=== PATIENT | female | born 1990 | race Caucasian/White ===

== ENCOUNTER 2017-02-14 15:37 | Emergency (ER) | payer MEDICAID ==
[2017-02-14 15:37] VITALS: BMI 45.1
[2017-02-14 15:58] VITALS: RESP 18
--- NOTE | 2017-02-14 16:34 | C.PDOC ---
History Of Present Illness Patient is a 26 year old female who presents to the ER with a complaint of right chest pain. Patient reports having a termination of done last week. Denies SOB, nausea or vomiting. Time Seen by Provider: 02/14/17 15:59 Chief Complaint (Nursing): Chest Pain History Per: Patient History/Exam Limitations: no limitations Onset/Duration Of Symptoms: Hrs Current Symptoms Are (Timing): Still Present Associated Symptoms: denies: Nausea, Dyspnea, Other (Vomiting) Modifying Factors: None Exacerbating Factors: None Alleviating Factors: None Recent travel outside of the [place]: No Past Medical History Reviewed: Historical Data, Nursing Documentation, Vital Signs Vital Signs: Last Vital Signs Temp 98.6 F 02/14/17 18:25 Pulse 71 02/14/17 18:25 Resp 18 02/14/17 18:25 BP 122/81 02/14/17 18:25 Pulse Ox 99 02/14/17 18:25 - Medical History PMH: No Chronic Diseases Surgical History: No Surg Hx Family History: States: Unknown Family Hx - Social History Hx Tobacco Use: No Hx Alcohol Use: No Hx Substance Use: No - Immunization History Hx Tetanus Toxoid Vaccination: No Hx Influenza Vaccination: No Hx Pneumococcal Vaccination: No Review Of Systems Except As Marked, All Systems Reviewed And Found Negative. Constitutional: Negative for: Fever, Chills Cardiovascular: Positive for: Chest Pain Respiratory: Negative for: Shortness of Breath Gastrointestinal: Negative for: Nausea, Vomiting Physical Exam - Physical Exam Appears: Non-toxic Skin: Normal Color, Warm, Dry Head: Atraumatic, Normacephalic Oral Mucosa: Moist Chest: Symmetrical, Tenderness (Right sided, reproducible) Cardiovascular: Rhythm Regular, No Murmur Respiratory: Normal Breath Sounds, No Rales, No Rhonchi, No Wheezing Gastrointestinal/Abdominal: Soft, No Tenderness Neurological/Psych: Oriented x3, Normal Speech, Normal Cognition Gait: Steady ED Course And Treatment - Laboratory Results Result Diagrams: 02/14/17 16:43 02/14/17 16:43 Lab Interpretation: Normal Urine POC: Positive ECG: Interpreted By Me ECG Rhythm: Sinus Rhythm ECG Interpretation: Normal Rate From EC O2 Sat by Pulse Oximetry: 100 (Room air) Pulse Ox Interpretation: Normal - Radiology CXR: Interpreted by Me CXR Interpretation: Yes: No Acute Disease Progress Note: EKG, blood work, CXR and urinalysis ordered. Toradol administered. On re-evaluation lungs clear, in no distress Reassessment Condition: Improved Disposition Counseled Patient/Family Regarding: Studies Performed, Diagnosis, Need For Followup, Rx Given - Disposition Referrals: [facility] [Outside] [facility] [employer] [Outside] Disposition: HOME/ ROUTINE Disposition Time: 18:00 Condition: IMPROVED Additional Instructions: Follow up with PMD for further evaluation Prescriptions: Naproxen [Naprosyn] 1 tab PO BID PRN #25 tab PRN Reason: Pain Instructions: Chest Wall Pain (ED) - POA Present On Arrival: None - Clinical Impression Clinical Impression: Chest wall pain, Muscle strain - Scribe Statement The provider has reviewed the documentation as recorded by the Scribrj Joseph All medical record entries made by the Santaibrj were at my direction and personally dictated by me. I have reviewed the chart and agree that the record accurately reflects my personal performance of the history, physical exam, medical decision making, and the department course for this patient. I have also personally directed, reviewed, and agree with the discharge instructions and disposition.
[2017-02-14 16:46] LABS: BASO # 0.1 K/uL (0.0-0.2); BASO % 0.6 % (0.0-2.0); EOS # 0.3 K/uL (0.0-0.7); EOS % 3.1 % (0.0-4.0); HEMATOCRIT 41.2 % (34.0-47.0); LYMPH % 28.7 % (20.0-40.0); MEAN CELL VOLUME 77.3 fL (81.0-99.0); MEAN CORPUSCULAR HEMOGLOBIN 24.8 pg (27.0-31.0); MEAN CORPUSCULAR HGB CONC 32.1 g/dL (33.0-37.0); MEAN PLATELET VOLUME 8.7 fL (7.2-11.7); MONO # 0.7 K/uL (0.0-0.8); MONO % 6.8 % (0.0-10.0); RED CELL DISTRIBUTION WIDTH 13.9 % (11.5-14.5); WHITE BLOOD COUNT 10.4 K/uL (4.8-10.8)
[2017-02-14 17:01] LABS: RBC URINE 3 /hpf (0-3); URINE BILIRUBIN NEGATIVE (NEGATIVE); URINE BLOOD 3+ (NEGATIVE); URINE COLOR Yellow (YELLOW); URINE GLUCOSE (UA) NORMAL (Normal); URINE HYALINE CAST 0-2 /lpf (0-2); URINE KETONE NEGATIVE (NEGATIVE); URINE LEUKOCYTE ESTERASE NEG Leu/uL (Negative); URINE PROTEIN NEGATIVE (NEGATIVE); URINE UROBILINOGEN NORMAL mg/dL (0.2-1.0); WBC URINE 1 /hpf (0-5)
--- NOTE | 2017-02-14 17:26 | RAD ---
HISTORY: SOB COMPARISON: No prior. TECHNIQUE: Chest PA and lateral FINDINGS: LUNGS: No active pulmonary disease. PLEURA: No significant pleural effusion identified. No pneumothorax apparent. CARDIOVASCULAR: Normal. OSSEOUS STRUCTURES: No significant abnormalities. VISUALIZED UPPER ABDOMEN: Normal. OTHER FINDINGS: None. IMPRESSION: No active disease.
[2017-02-14 17:38] LABS: CHLORIDE 104 mmol/L (98-107)
[2017-02-14 17:39] LABS: POTASSIUM 3.6 mmol/L (3.6-5.2); SODIUM 139 mmol/L (132-148)
[2017-02-14 17:41] LABS: GFR AFRICAN-AMERICAN > 60
[2017-02-14 17:42] LABS: ALB/GLOB RATIO 1.3 (1.0-2.1); ALKALINE PHOSPHATASE 42 U/L (38-126); ALT/SGPT 26 U/L (9-52); AST/SGOT 21 U/L (14-36); BILIRUBIN,TOTAL 0.5 mg/dL (0.2-1.3); BLOOD UREA NITROGEN 10 mg/dL (7-17); CALCIUM 9.7 mg/dl (8.6-10.4); CARBON DIOXIDE 25 mmol/L (22-30); GLUCOSE,RANDOM 88 mg/dL (65-105); TOTAL PROTEIN 6.9 g/dL (6.3-8.3)
[2017-02-14 18:32] VITALS: BP 122/81; PULSE 71; TEMP 98.6
[2017-02-14 18:35] VITALS: O2SAT 100
== END 2017-02-14 18:31 | disposition home or self-care (01) ==
LOC: C.ER 15:37
DX: S29.011A Strain of muscle and tendon of front wall of thorax, initial encounter (principal); X58.XXXA Exposure to other specified factors, initial encounter; Y93.89 Activity, other specified; Y92.89 Other specified places as the place of occurrence of the external cause; R07.89 Other chest pain
CPT/HCPCS: 71020; 80053; 81001; 85025; 96374; 99285; J1885

== ENCOUNTER 2017-08-06 10:13 | Emergency (ER) | payer MEDICAID ==
[2017-08-06 10:13] VITALS: BMI 45.1
[2017-08-06] MEDS ORDERED: Oxycodone/Acetaminophen 5/325 mg Tab PO STA ×2 (10:43→11:43)
--- NOTE | 2017-08-06 10:49 | C.PDOC ---
History Of Present Illness 27yo female, presents to ED for evaluation after she slipped on an icy surface and landed on her buttock prior to arrival. Patient states she currently has pain to her buttock area; she denies any loss of consciousness, bowel or bladder dysfunction, saddle anesthesia. No other complaints. Time Seen by Provider: 08/06/17 10:39 Chief Complaint (Nursing): Back Pain History Per: Patient History/Exam Limitations: no limitations Onset/Duration Of Symptoms: Mins Current Symptoms Are (Timing): Still Present Quality Of Discomfort: "Pain" Previous Symptoms: None Associated Symptoms: None Past Medical History Reviewed: Historical Data, Nursing Documentation, Vital Signs Vital Signs: Last Vital Signs Temp 97.7 F 08/06/17 12:25 Pulse 88 08/06/17 12:25 Resp 18 08/06/17 12:25 BP 142/106 H 08/06/17 12:25 Pulse Ox 100 08/06/17 12:25 - Medical History PMH: No Chronic Diseases Surgical History: No Surg Hx Family History: States: Unknown Family Hx - Social History Hx Tobacco Use: No Hx Alcohol Use: No Hx Substance Use: No - Immunization History Hx Tetanus Toxoid Vaccination: No Hx Influenza Vaccination: No Hx Pneumococcal Vaccination: No Review Of Systems Musculoskeletal: Positive for: Back Pain (lower back, buttock area) Neurological: Negative for: Other (loss of consciousness) Physical Exam - Physical Exam Appears: Non-toxic Skin: Normal Color Neck: Supple Back: No Vertebral Tenderness, No Paraspinal Tenderness, Other (tenderness around sacrum and coccyx area. ) Pulses: Left Radial: Normal, Right Radial: Normal, Left Dorsalis Pedis: Normal, Right Dorsalis Pedis: Normal Neurological/Psych: Normal Motor Gait: Steady ED Course And Treatment O2 Sat by Pulse Oximetry: 95 - Other Rad XR Lumbar Spine 3 Views X-Ray: Interpreted by Me, Viewed By Me Interpretation: No acute fracture. Normal bony alignment. XR Coccyx and Sacrum X-Ray: Interpreted by Me, Viewed By Me Interpretation: No fracture or dislocations. Medical Decision Making Medical Decision Making: Impression: Back injury Plan: -- XR Lumbar spine -- XR Sacrum and -- Naprosyn 500 mg PO -- Tylenol/codeine 300 mg PO Time: 1223 Patient resting comfortably and reports improvement in pain. Stable for discharge home. Disposition Counseled Patient/Family Regarding: Studies Performed, Diagnosis, Need For Followup, Rx Given - Disposition Referrals: [facility] [Outside] Disposition: HOME/ ROUTINE Disposition Time: 12:24 Condition: STABLE Additional Instructions: follow up with clinic in 2 days call to make an appointment take pain medications as needed return to hospital if symptoms worsens or progress Prescriptions: Acetaminophen/Codeine [Tylenol/Codeine 300 MG/30 MG] 1 tab PO Q6H PRN #12 tab PRN Reason: Pain, Severe (8-10) Cyclobenzaprine [Cyclobenzaprine HCl] 10 mg PO TID PRN #12 tab PRN Reason: Muscle Spasm Naproxen [Naprosyn] 500 mg PO BID PRN #16 tab PRN Reason: Pain, Moderate (4-7) Instructions: Back Pain (ED) Forms: [facility] (Hungarian), General Discharge Instructions - Clinical Impression Clinical Impression: Contusion of back - Scribe Statement The provider has reviewed the documentation as recorded by the Komal Raygoza Provider Attestation: All medical record entries made by the Komal were at my direction and personally dictated by me. I have reviewed the chart and agree that the record accurately reflects my personal performance of the history, physical exam, medical decision making, and the department course for this patient. I have also personally directed, reviewed, and agree with the discharge instructions and disposition.
[2017-08-06] MEDS ORDERED: Oxycodone/Acetaminophen 5/325 mg Tab ONE ×2 (11:20→11:52)
[2017-08-06 12:29] VITALS: BP 142/106; PULSE 88; RESP 18; TEMP 97.7
[2017-08-06 12:35] VITALS: O2SAT 95
--- NOTE | 2017-08-06 16:30 | RAD ---
PROCEDURE: Radiographs of the Sacrum and Coccyx HISTORY: fall COMPARISON: None available. TECHNIQUE: Frontal and lateral views of the sacrum and coccyx FINDINGS: BONES: Sacrum and coccyx unremarkable. No fracture or focal lesion. The lateral depiction of the sacrococcygeal junction is within normal limits There is incomplete closure of the S1 posterior elements suggested - developmental variant SACROILIAC JOINTS: Unremarkable. OTHER FINDINGS: Mild pubic symphyseal joint arthropathic changes IMPRESSION: No suspect fracture.
--- NOTE | 2017-08-06 16:31 | RAD ---
PROCEDURE: Radiographs of the Lumbar Spine. HISTORY: fall COMPARISON: No prior. FINDINGS: BONES: Normal alignment. No listhesis. No fracture. Developmental variant -incomplete S1 posterior element closure DISC SPACES: Unremarkable. OTHER FINDINGS: None. IMPRESSION: No fracture or subluxation
== END 2017-08-06 12:41 | disposition home or self-care (01) ==
LOC: C.ER 10:13
DX: S30.0XXA Contusion of lower back and pelvis, initial encounter (principal); W00.0XXA Fall on same level due to ice and snow, initial encounter

== ENCOUNTER 2017-09-07 12:46 | Emergency (ER) | payer MEDICAID ==
[2017-09-07 12:46] VITALS: BMI 45.1
[2017-09-07 14:13] LABS: HCG,QUALITATIVE URINE POSITIVE (NEGATIVE)
[2017-09-07 14:27] LABS: SQUAMOUS EPITHIAL 1 /hpf (0-5); URINE BILIRUBIN NEGATIVE (NEGATIVE); URINE BLOOD 3+ (NEGATIVE); URINE CLARITY Clear (Clear); URINE COLOR Yellow (YELLOW); URINE GLUCOSE (UA) NORMAL (Normal); URINE LEUKOCYTE ESTERASE NEG Leu/uL (Negative); URINE NITRATE NEGATIVE (NEGATIVE); URINE PROTEIN 1+ mg/dL (NEGATIVE); URINE UROBILINOGEN NORMAL mg/dL (0.2-1.0)
[2017-09-07 14:54] LABS: BASO # 0.1 K/uL (0.0-0.2); BASO % 0.9 % (0.0-2.0); EOS # 0.1 K/uL (0.0-0.7); EOS % 1.3 % (0.0-4.0); HEMOGLOBIN 12.5 g/dL (11.0-16.0); LYMPH # 2.1 K/uL (1.0-4.3); LYMPH % 21.4 % (20.0-40.0); MEAN CELL VOLUME 76.4 fL (81.0-99.0); MEAN CORPUSCULAR HEMOGLOBIN 25.9 pg (27.0-31.0); MEAN CORPUSCULAR HGB CONC 33.9 g/dL (33.0-37.0); MONO # 0.6 K/uL (0.0-0.8); MONO % 5.6 % (0.0-10.0); NEUT # 7.1 K/uL (1.8-7.0); NEUT % 70.8 % (50.0-75.0); RBC 4.81 Mil/uL (3.80-5.20); RED CELL DISTRIBUTION WIDTH 14.3 % (11.5-14.5)
[2017-09-07 15:11] VITALS: RESP 18
[2017-09-07 15:22] LABS: ALB/GLOB RATIO 1.2 (1.0-2.1); ALBUMIN 3.7 g/dL (3.5-5.0); ALT/SGPT 31 U/L (9-52); AST/SGOT 37 U/L (14-36); BLOOD UREA NITROGEN 7 mg/dL (7-17); CALCIUM 8.5 mg/dl (8.6-10.4); GFR AFRICAN-AMERICAN > 60; GFR NON-AFRICAN AMERICAN > 60
--- NOTE | 2017-09-07 16:48 | C.PDOC ---
History Of Present Illness Pt c/o vaginal bleeding. Time Seen by Provider: 09/07/17 13:38 Chief Complaint (Nursing): Female Genitourinary History Per: Patient Onset/Duration Of Symptoms: Hrs (today) Current Symptoms Are (Timing): Still Present Severity: Moderate Location Of Pain/Discomfort: Suprapubic Quality Of Discomfort: Cramping Exacerbating Factors: None Alleviating Factors: None Additional History Per: Prior Records Abnormal Vaginal Bleeding: Yes Last Menstral Period: 08/03/2017 Past Medical History Reviewed: Historical Data, Nursing Documentation, Vital Signs Vital Signs: Last Vital Signs Temp 98.1 F 09/07/17 15:10 Pulse 79 09/07/17 15:10 Resp 18 09/07/17 15:10 BP 107/73 09/07/17 15:10 Pulse Ox 100 09/07/17 16:48 - Medical History PMH: No Chronic Diseases Family History: States: Unknown Family Hx - Social History Hx Tobacco Use: No Hx Alcohol Use: No Hx Substance Use: No - Immunization History Hx Tetanus Toxoid Vaccination: No Hx Influenza Vaccination: No Hx Pneumococcal Vaccination: No Review Of Systems Except As Marked, All Systems Reviewed And Found Negative. Constitutional: Negative for: Fever, Weakness Cardiovascular: Negative for: Chest Pain Respiratory: Negative for: Shortness of Breath Gastrointestinal: Negative for: Vomiting Genitourinary: Positive for: Vaginal Bleeding, Pelvic Pain Musculoskeletal: Negative for: Neck Pain Skin: Negative for: Rash Neurological: Negative for: Weakness, Numbness Physical Exam - Physical Exam Appears: Non-toxic, No Acute Distress Skin: Normal Color, Warm, Dry, No Rash Head: Atraumatic, Normacephalic Eye(s): bilateral: Normal Inspection, PERRL, EOMI Neck: Normal ROM, Supple Cardiovascular: Rhythm Regular Respiratory: Normal Breath Sounds, No Accessory Muscle Use Gastrointestinal/Abdominal: Soft, Tenderness (mild suprapubic), No Guarding, No Rebound Extremity: Normal ROM Neurological/Psych: Oriented x3, Normal Motor, Normal Sensation ED Course And Treatment - Laboratory Results Result Diagrams: 09/07/17 14:46 09/07/17 14:46 Urine POC: Positive O2 Sat by Pulse Oximetry: 100 Pulse Ox Interpretation: Normal - CT Scan/US Pelvic US Other Rad Studies (CT/US): Read By Radiologist, Radiology Report Reviewed CT/US Interpretation: Impression: Limited study. No evidence of intrauterine gestational sac. Right adnexal 2.9 x 2.8 x 2.7 cm heterogeneous indeterminate mass. This lesion does not demonstrate "Ring of fire vascularity" typical of an ectopic however ectopic remains of high concern, particularly in this patient without intrauterine gestational sac evident. Correlate clinically. If indeed the patient is based on serum beta HCG values, the lack of intrauterine gestational sac represents either: Very early IUP; embryonic demise; ectopic gestation. Follow-up with serial quantitative serum beta HCG measurements and post OBGYN follow-up as clinically indicated. Small fluid noted adjacent to the right ovary. Heterogeneous hypoechoic region within the endometrium measuring approximately 1.5 x 0.8 x 2.3 cm, possibly blood products. Disposition Discussed With : Lauren Cabral (Gas Engine Mechanic) Comment: She evaluated and examined pt in the ED. She states pt should be discharged home and return or f/up with her Digital Forensics Examiner in 2 days for repeat beta hcg. Doctor Will See Patient In The: ED Counseled Patient/Family Regarding: Studies Performed, Diagnosis, Need For Followup - Disposition Disposition: HOME/ ROUTINE Disposition Time: 17:59 Condition: STABLE Additional Instructions: Follow up with your Manager Education or return to the ER in 2 days for repeat hormone level. Return to the ER immediately if you develop severe pain , heavy bleeding, dizziness, worsening of symptoms or if you have any other concerns. Forms: [facility] (Faroese), General Discharge Instructions - Clinical Impression Clinical Impression: Vaginal bleeding in
--- NOTE | 2017-09-07 16:48 | US ---
Indication: Vaginal bleeding, rule out ectopic Comparison: None available Technique: Real-time transabdominal pelvic ultrasound was performed. In addition a transvaginal pelvic ultrasound was necessary to better depict pelvic anatomy. Findings: Examination markedly limited due to habitus. Uterus measures approximately 12.2 x 5.7 x 7.6 cm. Anteverted. Cervix length measures approximately 3.3 cm. Endometrial thickness measures approximately 2 cm in diameter. Heterogeneous hypoechoic region within the endometrium measuring approximately 1.5 x 0.8 x 2.3 cm, possibly blood products. No intrauterine gestational sac is identified. The right ovary measures approximately 3.2 x 2.6 x 3.2 cm. Blood flow is demonstrated to the right ovary. Inferior to the right ovary is a 2.9 x 2.8 x 2.7 cm heterogeneous indeterminate mass. The left ovary measures approximately 2.9 x 2.4 x 2.9 cm and was seen only in transabdominal portion of the examination. Blood flow is demonstrated the left ovary. Small fluid noted adjacent to the right ovary. Impression: Limited study. No evidence of intrauterine gestational sac. Right adnexal 2.9 x 2.8 x 2.7 cm heterogeneous indeterminate mass. This lesion does not demonstrate "Ring of fire vascularity" typical of an ectopic however ectopic remains of high concern, particularly in this patient without intrauterine gestational sac evident. Correlate clinically. If indeed the patient is based on serum beta HCG values, the lack of intrauterine gestational sac represents either: Very early IUP; embryonic demise; ectopic gestation. Follow-up with serial quantitative serum beta HCG measurements and post OBGYN follow-up as clinically indicated. Small fluid noted adjacent to the right ovary. Heterogeneous hypoechoic region within the endometrium measuring approximately 1.5 x 0.8 x 2.3 cm, possibly blood products. Findings discussed with Dr. Marin on 09/07/17 at 4:44 p.m..
[2017-09-07] MEDS ORDERED: Sodium Chloride 0.9% 1,000 ML IV STA (17:01)
--- NOTE | 2017-09-07 18:11 | CP.PCM.CON ---
<Hunter Barnett E - Last Filed: 09/07/17 18:43> History of Present Illness - History of Present Illness History of Present Illness: Gynecology Consult CC: Lower abdominal cramping and vaginal bleeding HPI: Patient is a 27 year old female with LMP of 08/03/17 who presents to the ED with complaints of sharp cramping abdominal pain and vaginal bleeding/ spotting that started this morning. Gynecology consult was placed in order to evaluate and rule out ectopic . During the encounter, patient reports that she just found out that she was 2 days ago via a home test. Patient has not had a visit. Patient reports that she is unsure if she wants to keep her or not. Patient denies fever, chills, nausea , vomiting, chest pain, current abdominal pain/ cramping and vaginal bleeding/ spotting. 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 absent: Pelvic Pain - Endocrine Endocrine: absent: Fatigue Past Patient History - Infectious Disease Hx of Infectious Diseases: None - Past Social History Smoking Status: Never Smoked - PSYCHIATRIC Hx Substance Use: No - SURGICAL HISTORY Hx Section: Yes Other/Comment: termination 02/07/2017 - ANESTHESIA Hx Anesthesia: Yes Hx Anesthesia Reactions: No Meds Allergies/Adverse Reactions: Allergies Allergy/AdvReac Type Severity Reaction Status Date / Time No Known Allergies Allergy Verified 08/06/17 10:17 Physical Exam - Head Exam Head Exam: ATRAUMATIC, NORMOCEPHALIC - Eye Exam Eye Exam: EOMI - GI/Abdominal Exam GI & Abdominal Exam: Soft. absent: Tenderness - Exam External exam: NORMAL EXTERNAL EXAM. absent: Lacerations, Lesions Speculum exam: Vaginal Bleeding (Blood in the vaginal vault ) Additional comments: SVE: Cervix is closed and posterior - Extremities Exam Extremities exam: Positive for: normal inspection - Neurological Exam Neurological exam: Alert, Oriented x3 - Psychiatric Exam Psychiatric exam: Normal Affect - Skin Skin Exam: Normal Color Results - Vital Signs Recent Vital Signs: Last Vital Signs Temp 98.1 F 09/07/17 15:10 Pulse 79 09/07/17 15:10 Resp 18 09/07/17 15:10 BP 107/73 09/07/17 15:10 Pulse Ox 100 09/07/17 18:02 - Labs Result Diagrams: 09/07/17 14:46 09/07/17 14:46 Labs: Laboratory Results - last 24 hr 09/07/17 09/07/17 09/07/17 14:05 14:46 14:46 WBC 10.0 RBC 4.81 Hgb 12.5 Hct 36.8 MCV 76.4 L MCH 25.9 L MCHC 33.9 RDW 14.3 Plt Count 257 MPV 8.0 Neut % (Auto) 70.8 Lymph % (Auto) 21.4 [place] % (Auto) 5.6 Eos % (Auto) 1.3 Baso % (Auto) 0.9 Neut # 7.1 H Lymph # 2.1 Madison # 0.6 Eos # 0.1 Baso # 0.1 Sodium 135 Potassium 3.5 L Chloride 101 Carbon Dioxide 25 Anion Gap 12 BUN 7 Creatinine 0.5 L Est GFR ( Amer) > 60 Est GFR (Non-Af Amer) > 60 Random Glucose 86 Calcium 8.5 L Total Bilirubin 0.5 AST 37 H ALT 31 Alkaline Phosphatase 43 Total Protein 6.8 Albumin 3.7 Globulin 3.0 Albumin/Globulin Ratio 1.2 Beta HCG, Quant 5655.90 Urine Color Yellow Urine Clarity Clear Urine pH 8.0 Ur Specific [place] 1.014 Urine Protein 1+ H Urine Glucose (UA) Normal Urine Ketones Negative Urine Blood 3+ H Urine Nitrate Negative Urine Bilirubin Negative Urine Urobilinogen Normal Ur Leukocyte Esterase Neg Urine WBC (Auto) 1 Urine RBC (Auto) 663 H Ur Squamous Epith Cells 1 Urine HCG, Qual Positive Blood Type Antibody Screen 09/07/17 14:46 WBC RBC Hgb Hct MCV MCH MCHC RDW Plt Count MPV Neut % (Auto) Lymph % (Auto) Madison % (Auto) Eos % (Auto) Baso % (Auto) Neut # Lymph # [place] # Eos # Baso # Sodium Potassium Chloride Carbon Dioxide Anion Gap BUN Creatinine Est GFR ( Amer) Est GFR (Non-Af Amer) Random Glucose Calcium Total Bilirubin AST ALT Alkaline Phosphatase Total Protein Albumin Globulin Albumin/Globulin Ratio Beta HCG, Quant Urine Color Urine Clarity Urine pH Ur Specific [place] Urine Protein Urine Glucose (UA) Urine Ketones Urine Blood Urine Nitrate Urine Bilirubin Urine Urobilinogen Ur Leukocyte Esterase Urine WBC (Auto) Urine RBC (Auto) Ur Squamous Epith Cells Urine HCG, Qual Blood Type O POSITIVE Antibody Screen Negative Assessment & Plan (1) Vaginal bleeding in Assessment and Plan: 27 year old female with LMP of 08/03/17 who presents to the ED with complaints of sharp cramping abdominal pain and vaginal bleeding/spotting with US showing: * No evidence of intrauterine gestational sac. Right adnexal 2.9 x 2.8 x 2.7 cm heterogeneous indeterminate mass. This lesion does not demonstrate "Ring of fire vascularity" typical of an ectopic however ectopic remains of high concern, particularly in this patient without intrauterine gestational sac evident. Correlate clinically. If indeed the patient is based on serum beta HCG values, the lack of intrauterine gestational sac represents either: Very early IUP; embryonic demise; ectopic gestation. Plan: 1. Stable 2. Repeat B-hCG in 48 hours 3. Follow up with outpatient INSPECTOR OUTSIDE PRODUCTION provider, Dr. Blood 4. Educated on normal miscarriage process 5. Return to the ED if excessive vaginal bleeding 6. Plans discussed with attending Hunter Barnett DO, PGY-1 Status: Acute <Lauren Cabral - Last Filed: 09/07/17 20:39> Physical Exam - Respiratory Exam Respiratory Exam: NORMAL BREATHING PATTERN - Cardiovascular Exam Cardiovascular Exam: REGULAR RHYTHM, +S1, +S2 - GI/Abdominal Exam GI & Abdominal Exam: Normal Bowel Sounds Additional comments: no guarding, no rebound tenderness, no rgidity - Exam Additional comments: External Genitali; No gross abnorlaites Vagi: Dark red, brwown watery discharg,e no clots Cervix: close,d non tender Ueurs; non tender Adnex; non tende,r no masses b/l Anus/Perienum: grossly nromal - Back Exam Back exam: NORMAL INSPECTION - Neurological Exam Neurological exam: CN II-XII Intact Results - Vital Signs Recent Vital Signs: Last Vital Signs Temp 97.4 F L 09/07/17 18:18 Pulse 80 09/07/17 18:18 Resp 18 09/07/17 18:18 BP 112/62 09/07/17 18:18 Pulse Ox 98 09/07/17 18:18 - Labs Result Diagrams: 09/07/17 14:46 09/07/17 14:46 Labs: Laboratory Results - last 24 hr 09/07/17 09/07/17 09/07/17 14:05 14:46 14:46 WBC 10.0 RBC 4.81 Hgb 12.5 Hct 36.8 MCV 76.4 L MCH 25.9 L MCHC 33.9 RDW 14.3 Plt Count 257 MPV 8.0 Neut % (Auto) 70.8 Lymph % (Auto) 21.4 [place] % (Auto) 5.6 Eos % (Auto) 1.3 Baso % (Auto) 0.9 Neut # 7.1 H Lymph # 2.1 Madison # 0.6 Eos # 0.1 Baso # 0.1 Sodium 135 Potassium 3.5 L Chloride 101 Carbon Dioxide 25 Anion Gap 12 BUN 7 Creatinine 0.5 L Est GFR ( Amer) > 60 Est GFR (Non-Af Amer) > 60 Random Glucose 86 Calcium 8.5 L Total Bilirubin 0.5 AST 37 H ALT 31 Alkaline Phosphatase 43 Total Protein 6.8 Albumin 3.7 Globulin 3.0 Albumin/Globulin Ratio 1.2 Beta HCG, Quant 5655.90 Urine Color Yellow Urine Clarity Clear Urine pH 8.0 Ur Specific [place] 1.014 Urine Protein 1+ H Urine Glucose (UA) Normal Urine Ketones Negative Urine Blood 3+ H Urine Nitrate Negative Urine Bilirubin Negative Urine Urobilinogen Normal Ur Leukocyte Esterase Neg Urine WBC (Auto) 1 Urine RBC (Auto) 663 H Ur Squamous Epith Cells 1 Urine HCG, Qual Positive Blood Type Antibody Screen 09/07/17 14:46 WBC RBC Hgb Hct MCV MCH MCHC RDW Plt Count MPV Neut % (Auto) Lymph % (Auto) [place] % (Auto) Eos % (Auto) Baso % (Auto) Neut # Lymph # Madison # Eos # Baso # Sodium Potassium Chloride Carbon Dioxide Anion Gap BUN Creatinine Est GFR ( Amer) Est GFR (Non-Af Amer) Random Glucose Calcium Total Bilirubin AST ALT Alkaline Phosphatase Total Protein Albumin Globulin Albumin/Globulin Ratio Beta HCG, Quant Urine Color Urine Clarity Urine pH Ur Specific [place] Urine Protein Urine Glucose (UA) Urine Ketones Urine Blood Urine Nitrate Urine Bilirubin Urine Urobilinogen Ur Leukocyte Esterase Urine WBC (Auto) Urine RBC (Auto) Ur Squamous Epith Cells Urine HCG, Qual Blood Type O POSITIVE Antibody Screen Negative - Impressions Impression: Beta: 5000+ US: no IUP , possible blodoclots, ovarin cyst Rh positive Assessment & Plan (1) Vaginal bleeding in Assessment and Plan: agree with above pt seen and examined with resident pt advised higher suscipion of abnorla however cannot rule out ectoipc repeat beta hcg 48 hours bleeding/pain precautions given Status: Acute
[2017-09-07 18:19] VITALS: BP 112/62; PULSE 80; TEMP 97.4; O2SAT 98
== END 2017-09-07 18:18 | disposition home or self-care (01) ==
LOC: C.ER 12:46
DX: O46.90 Antepartum hemorrhage, unspecified, unspecified trimester (principal); Z3A.00 Weeks of gestation of pregnancy not specified

== ENCOUNTER 2017-09-15 09:19 | Emergency (ER) | payer MEDICAID ==
[2017-09-15 09:19] VITALS: BMI 45.1
[2017-09-15 09:32] VITALS: RESP 16; TEMP 97.6
--- NOTE | 2017-09-15 10:47 | C.PDOC ---
History Of Present Illness 27-year-old female, presents to the emergency department with complaints of intermittent vaginal bleeding for the last week, that is associated with intermittent cramping. Patient was seen in ED one week ago and intrauterine was not seen at the time on US. Patient notes she followed up with her OBGYN and had her blood drawn, but she doesn't have results. Patient denies any pain at this time, no fever. Time Seen by Provider: 09/15/17 09:30 Chief Complaint (Nursing): Female Genitourinary History Per: Patient History/Exam Limitations: no limitations Onset/Duration Of Symptoms: Days Current Symptoms Are (Timing): Still Present Severity: Moderate Past Medical History Reviewed: Historical Data, Nursing Documentation, Vital Signs Vital Signs: Last Vital Signs Temp 97.6 F 09/15/17 09:29 Pulse 86 09/15/17 09:29 Resp 16 09/15/17 09:29 BP 127/74 09/15/17 09:29 Pulse Ox 99 09/15/17 10:48 Family History: States: No Known Family Hx - Social History Hx Tobacco Use: No Hx Alcohol Use: No Hx Substance Use: No - Immunization History Hx Tetanus Toxoid Vaccination: No Hx Influenza Vaccination: No Hx Pneumococcal Vaccination: No Review Of Systems Except As Marked, All Systems Reviewed And Found Negative. Constitutional: Negative for: Fever, Chills Cardiovascular: Negative for: Chest Pain Respiratory: Negative for: Shortness of Breath Genitourinary: Positive for: Vaginal Bleeding, Pelvic Pain Musculoskeletal: Negative for: Back Pain Physical Exam - Physical Exam Appears: Non-toxic, No Acute Distress Skin: Warm, Dry, No Rash Eye(s): bilateral: Normal Inspection, PERRL Nose: Normal Lips: Normal Appearing Neck: Normal ROM Chest: Symmetrical Cardiovascular: Rhythm Regular, No Murmur Respiratory: Normal Breath Sounds, No Accessory Muscle Use Gastrointestinal/Abdominal: Soft, No Tenderness, No Distention Extremity: Normal ROM Neurological/Psych: Oriented x3, Other (no focal deficits) ED Course And Treatment O2 Sat by Pulse Oximetry: 99 (on RA) Pulse Ox Interpretation: Normal Medical Decision Making Medical Decision Makin disc w OB Dr Momin, agrees likely spont ab, ectopic unlikely, however agrees w plan for close outpt f/u w OB in 2 days. 1225 disc results w pt and plan for f/u as well as rtr. she v/u and agrees w plan. HISTORY: Bleeding pain eval for ectopic vs spont ab COMPARISON: None available. TECHNIQUE: Transvaginal pelvic ultrasound was performed. FINDINGS: UTERUS: Measures 11.8 x 7.4 x 7.5 cm. Anteverted and normal in size. No fibroid or other mass lesion seen. ENDOMETRIUM: There is a single intrauterine gestational sac with mean sac diameter of 1.12 cm corresponding to 5 weeks and 2 days of gestational age. Yolk sac and pole are not visualized. There is a 2.2 x 0.7 x 1.4 cm posterior subchorionic hemorrhage. CERVIX: No cervical abnormality identified. RIGHT OVARY: Measures 5.9 x 2.3 x 4.8 cm. No solid mass. Normal flow. There is a 3.4 x 2.4 x 2.7 cm corpus luteum cyst. LEFT OVARY: Measures 3.7 x 1.9 x 3.0 cm. No solid mass. Normal flow. FREE FLUID: No significant free fluid noted. OTHER FINDINGS: None. IMPRESSION: 1. Single intrauterine gestational sac with mean gestational diameter of 1.12 cm corresponding to 5 weeks and 2 days of gestational age. Yolk sac and pole are not visualized. 2. 2.2 x 0.7 x 1.4 cm posterior subchorionic hemorrhage. 3. 3.4 cm corpus luteum cyst in the right ovary. Disposition - Disposition Disposition: HOME/ ROUTINE Disposition Time: 13:27 Condition: STABLE Forms: [facility] ([place]) - Clinical Impression Clinical Impression: Vaginal bleeding in - Scribe Statement The provider has reviewed the documentation as recorded by the Scribe (Di Conteh) All medical record entries made by the Scribe were at my direction and personally dictated by me. I have reviewed the chart and agree that the record accurately reflects my personal performance of the history, physical exam, medical decision making, and the department course for this patient. I have also personally directed, reviewed, and agree with the discharge instructions and disposition.
--- NOTE | 2017-09-15 12:51 | US ---
HISTORY: Bleeding pain eval for ectopic vs spont ab COMPARISON: None available. TECHNIQUE: Transvaginal pelvic ultrasound was performed. FINDINGS: UTERUS: Measures 11.8 x 7.4 x 7.5 cm. Anteverted and normal in size. No fibroid or other mass lesion seen. ENDOMETRIUM: There is a single intrauterine gestational sac with mean sac diameter of 1.12 cm corresponding to 5 weeks and 2 days of gestational age. Yolk sac and pole are not visualized. There is a 2.2 x 0.7 x 1.4 cm posterior subchorionic hemorrhage. CERVIX: No cervical abnormality identified. RIGHT OVARY: Measures 5.9 x 2.3 x 4.8 cm. No solid mass. Normal flow. There is a 3.4 x 2.4 x 2.7 cm corpus luteum cyst. LEFT OVARY: Measures 3.7 x 1.9 x 3.0 cm. No solid mass. Normal flow. FREE FLUID: No significant free fluid noted. OTHER FINDINGS: None. IMPRESSION: 1. Single intrauterine gestational sac with mean gestational diameter of 1.12 cm corresponding to 5 weeks and 2 days of gestational age. Yolk sac and pole are not visualized. 2. 2.2 x 0.7 x 1.4 cm posterior subchorionic hemorrhage. 3. 3.4 cm corpus luteum cyst in the right ovary.
[2017-09-15 13:37] VITALS: BP 125/81; PULSE 74; O2SAT 98
== END 2017-09-15 13:37 | disposition home or self-care (01) ==
LOC: C.ER 09:19
DX: O46.91 Antepartum hemorrhage, unspecified, first trimester (principal); Z3A.01 Less than 8 weeks gestation of pregnancy

== ENCOUNTER 2017-10-08 15:29 | Inpatient (IN) | payer MEDICAID ==
[2017-10-08 16:05] VITALS: BMI 39.5
--- NOTE | 2017-10-08 17:09 | C.PDOC ---
History Of Present Illness <Karina Culver - Last Filed: 10/08/17 18:57> <Lorena Mcqueen - Last Filed: 10/08/17 22:16> PERSIST VAG BLEED, CRAMPING X 1 MO. PRIOR ER EVAL FOR SAME, +IUP ON 09/15. PS HAD HEAVY VB ON 09/24, NOW W RESIDUAL BLEEDING. FU W OBGYN, AWARE OF PERSISTENT SX. PS CONCERNED BC TODAY HAD SHARP R PELVIC PAIN, NOW IMPROVED BUT PERSISTENT. NO OTHER ASSOC SX EXAM MILD DIST NONTOXIC ABD SOFT NT ND NO R/G (Palomo,Karina) History Per: Patient History/Exam Limitations: no limitations Onset/Duration Of Symptoms: Days Current Symptoms Are (Timing): Still Present Severity: Moderate <Karina Culver - Last Filed: 10/08/17 18:57> <Lorena Mcqueen - Last Filed: 10/08/17 22:16> Time Seen by Provider: 10/08/17 17:08 Chief Complaint (Nursing): Abdominal Pain Past Medical History Reviewed: Historical Data, Nursing Documentation, Vital Signs - Medical History PMH: No Chronic Diseases Other Surgeries: Hx of surgeries Family History: States: No Known Family Hx - Social History Hx Tobacco Use: No Hx Alcohol Use: No Hx Substance Use: No - Immunization History Hx Tetanus Toxoid Vaccination: No Hx Influenza Vaccination: No Hx Pneumococcal Vaccination: No <Karina Culver - Last Filed: 10/08/17 18:57> Vital Signs: Last Vital Signs Temp 98.8 F 10/08/17 16:05 Pulse 94 H 10/08/17 16:05 Resp 18 10/08/17 16:05 BP 122/79 10/08/17 16:05 Pulse Ox 100 10/08/17 18:58 Review Of Systems Except As Marked, All Systems Reviewed And Found Negative. Genitourinary: Positive for: Vaginal Bleeding Musculoskeletal: Positive for: Other (right pelvic pain) <Karina Culver - Last Filed: 10/08/17 18:57> Physical Exam - Physical Exam Appears: Non-toxic, Other (mild distress) Skin: Normal Color, Warm Head: Atraumatic, Normacephalic Eye(s): bilateral: Normal Inspection Gastrointestinal/Abdominal: Normal Exam, Soft, No Tenderness, No Distention, No Guarding, No Rebound Neurological/Psych: Oriented x3, Normal Speech, Normal Motor, Normal Sensation <Karina Culver - Last Filed: 10/08/17 18:57> ED Course And Treatment - Laboratory Results Result Diagrams: 10/08/17 17:55 10/08/17 17:55 O2 Sat by Pulse Oximetry: 100 (RA) Pulse Ox Interpretation: Normal <Karina Culver - Last Filed: 10/08/17 18:57> - Laboratory Results Result Diagrams: 10/08/17 17:55 10/08/17 17:55 <Lorena Mcqueen - Last Filed: 10/08/17 22:16> Progress - Data Reviewed Data Reviewed: Lab, Diagnostic imaging, Old records <Karina Culver - Last Filed: 10/08/17 18:57> - Time Time: 20:34 - Continuity of Care Discussed patient case with:: Patient, Other (Pt with pelvic US demonstrative of an ill defined R adnexal mass..No true yolk sac or pole is identified.? pseudogestational sac) <Lorena Mcqueen - Last Filed: 10/08/17 22:16> Medical Decision Making <Karina Culver - Last Filed: 10/08/17 18:57> <Lorena Mcqueen - Last Filed: 10/08/17 22:16> Medical Decision Making: Plan: --Labs --UA --US (Karina Culver) Spoke with Dr. Villa who is OBYGYN electronics mechanic at 20:20 and she was going into the OR and states she will come down in an hour and a half. (Lorena Mcqueen) Disposition Counseled Patient/Family Regarding: Studies Performed - Disposition Disposition Time: 19:00 <Karina Culver - Last Filed: 10/08/17 18:57> <Lorena Mcqueen - Last Filed: 10/08/17 22:16> - Disposition Condition: STABLE Forms: [employer] ([place]) - Clinical Impression Clinical Impression: Vaginal bleeding in - Scribe Statement The provider has reviewed the documentation as recorded by the Scribe <Karina Culver - Last Filed: 10/08/17 18:57> <Lorena Mcqueen - Last Filed: 10/08/17 22:16> - Scribe Statement Kerline Hoffmann (Karina Culver) Provider Attestation: All medical record entries made by the Scribe were at my direction and personally dictated by me. I have reviewed the chart and agree that the record accurately reflects my personal performance of the history, physical exam, medical decision making, and the department course for this patient. I have also personally directed, reviewed, and agree with the discharge instructions and disposition. (Karina Culver) Physician Patient Turnover Patient Signed Over To: Lorena Mcqueen Handoff Comments: US SAI, DISPO <Karina Culver - Last Filed: 10/08/17 18:57>
[2017-10-08 18:04] LABS: BASO % 0.4 % (0.0-2.0); EOS # 0.2 K/uL (0.0-0.7); EOS % 2.4 % (0.0-4.0); HEMOGLOBIN 12.2 g/dL (11.0-16.0); LYMPH # 1.9 K/uL (1.0-4.3); LYMPH % 19.6 % (20.0-40.0); MEAN CELL VOLUME 76.7 fL (81.0-99.0); MEAN CORPUSCULAR HEMOGLOBIN 25.9 pg (27.0-31.0); MEAN CORPUSCULAR HGB CONC 33.8 g/dL (33.0-37.0); MONO # 0.6 K/uL (0.0-0.8); MONO % 6.6 % (0.0-10.0); RBC 4.71 Mil/uL (3.80-5.20); RED CELL DISTRIBUTION WIDTH 14.2 % (11.5-14.5); WHITE BLOOD COUNT 9.8 K/uL (4.8-10.8)
[2017-10-08 18:18] LABS: ALB/GLOB RATIO 1.3 (1.0-2.1); ALBUMIN 3.8 g/dL (3.5-5.0); ALT/SGPT 26 U/L (9-52); AST/SGOT 19 U/L (14-36); BLOOD UREA NITROGEN 11 mg/dL (7-17); GFR AFRICAN-AMERICAN > 60; GFR NON-AFRICAN AMERICAN > 60
[2017-10-08 18:31] LABS: SQUAMOUS EPITHIAL 2 /hpf (0-5); URINE BACTERIA OCC (<OCC); URINE BILIRUBIN NEGATIVE (NEGATIVE); URINE BLOOD 3+ (NEGATIVE); URINE CLARITY Hazy (Clear); URINE COLOR Yellow (YELLOW); URINE GLUCOSE (UA) NORMAL (Normal); URINE LEUKOCYTE ESTERASE NEG Leu/uL (Negative); URINE NITRATE NEGATIVE (NEGATIVE); URINE PROTEIN NEGATIVE (NEGATIVE); URINE UROBILINOGEN NORMAL mg/dL (0.2-1.0)
--- NOTE | 2017-10-08 20:11 | US ---
EXAM: US First Trimester, Transabdominal CLINICAL HISTORY: 27 years old, female; Signs and symptoms; Lmp or gestational age (in weeks): 12-11-17; Other: Bleeding; ; Prior surgery; Surgery date: 6+ months; Surgery type: 1 c- section. Orior 09-15-17; Patient HX: See cine please; Additional info: Vag bleed RO ectopic TECHNIQUE: Real-time transabdominal obstetrical ultrasound of the maternal pelvis and a first trimester with image documentation. COMPARISON: US - OB TRANSVAGINAL 2017-09-15 11:48 FINDINGS: Gestation: Two irregular saclike structures with internal echoes within uterus, 3.5 x 2.4 x 4.8 and 3.9 x 0.9 x 1.3 cm. No yolk sac. No pole. Uterus/cervix: Closed cervix. Ovaries: Normal ovaries. Apparent 2.8 x 2.8 x 2.7 cm hypo-to isoechoic lesion within right adnexal region. Free fluid: No significant free fluid. IMPRESSION: 1. Irregular saclike structures without pole or yolk sac which may represent blighted ovum with subchorionic hemorrhage or pseudogestational sac related to ectopic . Followup is recommended. 2. Right adnexal lesion, indeterminate. Ectopic not excluded. EXAM: US , Transvaginal CLINICAL HISTORY: 27 years old, female; Signs and symptoms; Lmp or gestational age (in weeks): 12-11-17; Other: Bleeding; ; Prior surgery; Surgery date: 6+ months; Surgery type: 1 c- section. Orior 09-15-17; Patient HX: See cine please; Additional info: Vag bleed RO ectopic TECHNIQUE: Real-time transvaginal obstetrical ultrasound of the maternal pelvis and a first trimester with image documentation. Transvaginal imaging was used for better evaluation of the fetus and adnexa. COMPARISON: US - OB TRANSVAGINAL 2017-09-15 11:48 FINDINGS: Gestation: Two irregular saclike structures with internal echoes within uterus, 3.5 x 2.4 x 4.8 and 3.9 x 0.9 x 1.3 cm. No yolk sac. No pole. Uterus/cervix: Closed cervix. Ovaries: Normal ovaries. Apparent 2.8 x 2.8 x 2.7 cm hypo-to isoechoic lesion within right adnexal region. Free fluid: No significant free fluid.
[2017-10-09 01:08] VITALS: O2SAT 100
--- NOTE | 2017-10-09 01:59 | CP.PCM.HP ---
History of Present Illness - History of Present Illness History of Present Illness: 27 y.o , LMP 08/03/17, S/P VTOP one to two months prior. Had sexual relations 08/11/17; took Plan B. Then had sexual intercourse 08/15/17; did not take another course of Plan B. Presented to E.D. 09/07/17 c/o gush of blood x 1. Found to have a positive test; told to be too early. Discharged with instructions to follow up with tram inspector provider. Went to [facility]; took blood work. As a result of persistent vaginal bleeding, decided to return to E.D. 09/15: bleed x 2 days, then stop for 2 days. In E.D., told most likely to be experiencing a spontaneous and to "wait it out". Bleeding continued, RLQ discomfort which was present from the onset became slightly more annoying, described as crampy, pain scale 7/10. Decided to come in for evaluation. Denies nausea, vomiting; (+) constipation. P Ob: 2013, C/S, failed DELISA, arrest at 4 cm; male, 9lb 4oz. VTOP x 2; both in 2016, each at 7-8 weeks; with D&C; no complications. Spont ab x 2: both 2005, 12 weeks and 1 month; with D&C x 1. 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 Denies abnormal Pap, fibroids. PMH: denies PSH: C/S; D&C x 3 NKDA Meds: denies Soc Hx: denies tobacco, illicit drug or EtOH use. Single. 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 Fam Hx: Mother alive 59 y.o. HTN. Father alive 59 y.o. DM; both with depression. Present on Admission - Present on Admission Any Indicators Present on Admission: No Review of Systems - Reproductive: Female Reproductive:Female: As Per HPI Past Patient History - Infectious Disease Hx of Infectious Diseases: None - Past Social History Smoking Status: Never Smoked Home Situation {Lives}: With Family - GENITOURINARY/GYNECOLOGICAL Hx Sexually Transmitted Disorders: Yes (chlamydia) - PSYCHIATRIC Hx Substance Use: No - SURGICAL HISTORY Hx Surgeries: Yes Hx Section: Yes (X1(2013)) Hx Dilation and Curettage: Yes (2005, 2016 x 2) Other/Comment: termination 02/07/2017 - ANESTHESIA Hx Anesthesia: Yes Hx Anesthesia Reactions: No Meds Allergies/Adverse Reactions: Allergies Allergy/AdvReac Type Severity Reaction Status Date / Time No Known Allergies Allergy Verified 10/08/17 16:04 Physical Exam - Constitutional Appears: Well, No Acute Distress - Head Exam Head Exam: NORMAL INSPECTION - ENT Exam ENT Exam: Mucous Membranes Moist - Respiratory Exam Respiratory Exam: NORMAL BREATHING PATTERN - Cardiovascular Exam Cardiovascular Exam: REGULAR RHYTHM - GI/Abdominal Exam GI & Abdominal Exam: Soft - Exam Additional comments: deferred to the O.R. Results - Vital Signs Recent Vital Signs: Last Vital Signs Temp 98.4 F 10/09/17 00:35 Pulse 81 10/09/17 00:35 Resp 20 10/09/17 00:35 BP 106/78 10/09/17 00:35 Pulse Ox 100 10/09/17 00:35 - Labs Result Diagrams: 10/08/17 17:55 10/08/17 17:55 Labs: Laboratory Results - last 24 hr 10/08/17 10/08/17 10/08/17 17:55 17:55 17:55 WBC 9.8 RBC 4.71 Hgb 12.2 Hct 36.1 MCV 76.7 L MCH 25.9 L MCHC 33.8 RDW 14.2 Plt Count 277 MPV 8.0 Neut % (Auto) 71.0 Lymph % (Auto) 19.6 L [place] % (Auto) 6.6 Eos % (Auto) 2.4 Baso % (Auto) 0.4 Neut # (Auto) 7.0 Lymph # (Auto) 1.9 [place] # (Auto) 0.6 Eos # (Auto) 0.2 Baso # (Auto) 0.0 Sodium 134 Potassium 3.7 Chloride 100 Carbon Dioxide 25 Anion Gap 13 BUN 11 Creatinine 0.7 Est GFR ( Amer) > 60 Est GFR (Non-Af Amer) > 60 Random Glucose 82 Calcium 9.0 Total Bilirubin 0.4 AST 19 ALT 26 Alkaline Phosphatase 35 L Total Protein 6.8 Albumin 3.8 Globulin 2.9 Albumin/Globulin Ratio 1.3 Beta HCG, Quant 98763.00 Urine Color Yellow Urine Clarity Hazy Urine pH 7.0 Ur Specific [place] 1.017 Urine Protein Negative Urine Glucose (UA) Normal Urine Ketones Negative Urine Blood 3+ H Urine Nitrate Negative Urine Bilirubin Negative Urine Urobilinogen Normal Ur Leukocyte Esterase Neg Urine WBC (Auto) 3 Urine RBC (Auto) 22 H Ur Squamous Epith Cells 2 Urine Bacteria Occ H Blood Type Antibody Screen 10/08/17 17:55 WBC RBC Hgb Hct MCV MCH MCHC RDW Plt Count MPV Neut % (Auto) Lymph % (Auto) [place] % (Auto) Eos % (Auto) Baso % (Auto) Neut # (Auto) Lymph # (Auto) [place] # (Auto) Eos # (Auto) Baso # (Auto) Sodium Potassium Chloride Carbon Dioxide Anion Gap BUN Creatinine Est GFR ( Amer) Est GFR (Non-Af Amer) Random Glucose Calcium Total Bilirubin AST ALT Alkaline Phosphatase Total Protein Albumin Globulin Albumin/Globulin Ratio Beta HCG, Quant Urine Color Urine Clarity Urine pH Ur Specific [place] Urine Protein Urine Glucose (UA) Urine Ketones Urine Blood Urine Nitrate Urine Bilirubin Urine Urobilinogen Ur Leukocyte Esterase Urine WBC (Auto) Urine RBC (Auto) Ur Squamous Epith Cells Urine Bacteria Blood Type O POSITIVE Antibody Screen Negative Assessment & Plan - Assessment and Plan (Free Text) Assessment: Ultrasound images and reports from 09/07, 09/15 and today reviewed by me personally. 27 y.o. [id number], probable blighted ovum; possibly twin gestation, with incomplete passage of products of conception. In light of elevated quantitative HCG level, with suboptimal increase and empty gestational sac, which is now collapsing. patient most likely with a blighted ovum, incomplete (spontaneous) . It was discussed with patient D&C may be a worthwhile undertaking at this time. Patient expressed an understanding and agrees. R/B/C discussed; no questions offered. Consent obtained and place din chart. Patient last ate 1945 (bag of chips and gummy bears); drank 1/3 bottle O.J. as 2300 hours. Plan: Admit call box wirer to O.R. NPO ( at least 6 hours, as per anesthesia) IVFs - Date & Time Date: 10/08/17 Time: 23:55
[2017-10-09] MEDS: Lactated Ringer's 1,000 ML IV SCH ×2 (02:50→10:44)
[2017-10-09] MEDS ORDERED: cefOXitin 2 GM in Sodium Chloride 0.9% 100 ML IV SCH (05:30)
[2017-10-09] MEDS ORDERED: Midazolam 2 MG/2 ML VIAL ONE (06:03)
[2017-10-09] MEDS ORDERED: Propofol 10 mg/ml Inj (20 ML) ONE (06:03)
[2017-10-09] MEDS ORDERED: Oxytocin 10 Units/ml Inj ONE ×2 (06:21→06:22)
[2017-10-09] MEDS ORDERED: HYDROmorphone 0.5 mg/0.5 ml ISec IVP PRN (06:38)
--- NOTE | 2017-10-09 06:38 | PCM.SURG1 ---
Surgeon's Initial Post Op Note - Surgeon's Notes Surgeon: Deborah Villa MD Transport Tank Technician: Not applicable Type of Anesthesia: General LMA Anesthesia Administered By: Rimma Swanson MD Pre-Operative Diagnosis: Blighted ovum; retained products of conception; Previous C/section; Obese Operative Findings: Uterus sounded to 15 cm, Anteverted; no adnexal masses. Moderate amount of tissue Post-Operative Diagnosis: Same Operation Performed: Suction/sharp curettage Specimen/Specimens Removed: Products of conception Estimated Blood Loss: EBL {In ML}: 50 (500 ml LR with 20 units pitocin; Mefoxin 2 grams) Blood Products Given: N/A Drains Used: No Drains Post-Op Condition: Good Date of Surgery/Procedure: 10/09/17 Time of Surgery/Procedure: 06:38
[2017-10-09 09:06] VITALS: BP 105/68; PULSE 94; RESP 20; TEMP 98.1
[2017-10-09] MEDS ORDERED: Influenza Vaccine 60 mcg/0.5 mL SYR (4YR UP) IM ONE (10:52)
[2017-10-09] MEDS ORDERED: Pneumococcal 23-Valent Vaccine IM ONE (10:52)
--- NOTE | 2017-10-09 18:20 | OP ---
PROCEDURE DATE: 10/09/2017 SURGEON: Deborah Villa MD ELECTRONICS ENGINEERING MANAGER: Not applicable. ANESTHESIOLOGIST: Amna Ervin MD PREOPERATIVE DIAGNOSIS: Blighted ovum with retained products of conception, previous section. POSTOPERATIVE DIAGNOSIS: Blighted ovum with retained products of conception, previous section. PROCEDURE PERFORMED: Suction, sharp curettage. SPECIMENS: Products of conception. COMPLICATIONS: None. ESTIMATED BLOOD LOSS: 50 mL. INTRAVENOUS FLUIDS: 500 mL of lactated Ringer's with 20 units of Pitocin and the patient received Mefoxin 2 g. PROCEDURE: The patient was taken to the operating room after having obtained informed consent for the anticipated procedure. This included discussion of possible risks and complications including, but not limited to, infection requiring continued antibiotics, hemorrhage requiring blood transfusion, uterine perforation requiring possible laparoscopy, possible laparotomy, removal of all diseased tissue, repair of any damage to internal organs. The patient was taken to the operating room in which she was placed on the operating table in a supine position where general anesthesia with LMA was administered without incident. She was then repositioned in the [facility] in dorsal lithotomy position. The perineum was then prepped and she was subsequently draped in usual sterile fashion. Examination under anesthesia was performed. The uterus was initially perceived to be approximately 12 weeks in size. It was mobile and no adnexal masses were appreciated. A weighted speculum was placed in posterior vaginal vault. Using a Esquivel retractor, the cervix was visualized and it was grasped on its anterior lip using a single tooth speculum. Cervix was then serially dilated using the Hegar mechanical dilators. Uterus actually was sounded to 15 cm using the uterine sound. Suction curette was inserted and the suction device was activated. The uterus was then emptied of its contents. Sharp curettage was then performed until a gritty texture was repeated. Suction device was reinserted and the uterus was noted be contracted around the instruments. Sharp curettage again was performed and again a gritty texture was obtained. All instruments were removed; however, oozing was noted on the tenaculum site on the anterior lip. Monsel's solution was used to assure hemostasis. Repeat bimanual massage was performed, and the uterus was noted to be contracted to about 12 weeks in size. Hemostasis was assured. All instruments were removed. The patient was allowed to arise from anesthesia and she was transferred to the postanesthesia unit in stable condition. Deborah Villa MD
[2017-10-11] MEDS ORDERED: Pneumococcal 23-Valent Vaccine IM ONE (10:00)
[2017-10-11] MEDS ORDERED: Influenza Vaccine 60 mcg/0.5 mL SYR (4YR UP) IM ONE (10:00)
== END 2017-10-09 12:00 | disposition home or self-care (01) | DRG 886 ==
LOC: C.ER 15:29 → C.3T 23:43
PROVIDERS: ADMIT Obstetrics & Gynecology; ATTEND Obstetrics & Gynecology
PROC: 10D07Z8 Extraction of Products of Conception, Other, Via Natural or Artificial Opening (ICD-10-PCS; principal; 2017-10-09 06:00)
DX: O02.0 Blighted ovum and nonhydatidiform mole (principal); K59.00 Constipation, unspecified

== ENCOUNTER 2017-10-13 16:22 | Emergency (ER) | payer MEDICAID ==
[2017-10-13 16:22] VITALS: BMI 39.5
[2017-10-13 16:55] VITALS: BP 107/75; PULSE 87; RESP 18; TEMP 97.7; O2SAT 100
--- NOTE | 2017-10-13 19:11 | C.PDOC ---
History Of Present Illness 27 year old female presents to the ER after slamming her right 2nd finger with the car door IT OPERATIONS SPECIALIST. Denies weakness or numbness. Right hand dominant. Time Seen by Provider: 10/13/17 18:08 Chief Complaint (Nursing): Finger,Hand,&Wrist History Per: Patient History/Exam Limitations: no limitations Onset/Duration Of Symptoms: Hrs Current Symptoms Are (Timing): Still Present Exacerbating Factor(s): Strenuous Use Of Affected Area Recent travel outside of the [place] States: No Past Medical History Reviewed: Historical Data, Nursing Documentation, Vital Signs Vital Signs: Last Vital Signs Temp 97.7 F 10/13/17 16:52 Pulse 87 10/13/17 16:52 Resp 18 10/13/17 16:52 BP 107/75 10/13/17 16:52 Pulse Ox 100 10/13/17 20:44 - Medical History PMH: Sexually Transmitted Disease (chlamydia) - [facility] Procedures EXTRACTION OF PRODUCTS OF CONCEPTION, OTHER, VIA OPENING (10/08/17) Family History: States: Unknown Family Hx - Social History Hx Tobacco Use: No Hx Alcohol Use: No Hx Substance Use: No - Immunization History Hx Tetanus Toxoid Vaccination: No Hx Influenza Vaccination: No Hx Pneumococcal Vaccination: No Review Of Systems Musculoskeletal: Positive for: Hand Pain Neurological: Negative for: Weakness, Numbness Physical Exam - Physical Exam Appears: Well, Non-toxic, No Acute Distress Skin: Warm, Dry Head: Atraumatic, Normacephalic Eye(s): bilateral: Normal Inspection, EOMI Nose: Normal Oral Mucosa: Moist Chest: Symmetrical Respiratory: No Accessory Muscle Use Extremity: Capillary Refill (<2 seconds), Other ((+) subungual hematoma less than 25% with tenderness to distal phalanx of right hand 2nd digit) Pulses: Left Radial: Normal, Right Radial: Normal Neurological/Psych: Oriented x3, Normal Speech, Normal Motor, Normal Sensation ED Course And Treatment O2 Sat by Pulse Oximetry: 100 (Room air) Pulse Ox Interpretation: Normal - Other Rad Right hand x-ray X-Ray: Interpreted by Me, Viewed By Me Interpretation: No acute fracture or dislocation. Progress Note: Right hand x-ray ordered, results were negative. Tylenol administered for pain. Finger splint applied by non morse intercept technician. Disposition - Disposition Referrals: Sydney Tapia MD [Staff Provider] - Disposition: HOME/ ROUTINE Disposition Time: 19:09 Condition: STABLE Additional Instructions: Rest and ice the area. Follow up with PMD in1 -2 days. Instructions: Jonathan Finger (DC) Forms: [facility] (Kyrgyz) - Clinical Impression Clinical Impression: Finger contusion - PA / CELL TECHNICIAN / Resident Statement MD/DO has reviewed & agrees with the documentation as recorded. - Scribe Statement The provider has reviewed the documentation as recorded by the Scribrj Joseph All medical record entries made by the Santaibrj were at my direction and personally dictated by me. I have reviewed the chart and agree that the record accurately reflects my personal performance of the history, physical exam, medical decision making, and the department course for this patient. I have also personally directed, reviewed, and agree with the discharge instructions and disposition.
--- NOTE | 2017-10-14 10:12 | RAD ---
PROCEDURE: Right Index finger radiographs. HISTORY: trauma COMPARISON: None available. TECHNIQUE: AP radiograph of the right hand, as well as spot oblique and lateral images of index finger were obtained. FINDINGS: RIGHT INDEX FINGER: Unremarkable right 2nd digit without acute displaced fracture identified. Remainder of the right hand (as seen on the AP view) grossly intact. JOINTS: No dislocation. SOFT TISSUES: Soft tissue swelling. No evidence of radiopaque foreign body. OTHER FINDINGS: None. IMPRESSION: Soft tissue swelling. No acute displaced fracture identified. If symptoms persist or if there is continued clinical concern, x-ray follow-up in 7-10 days should be considered.
== END 2017-10-13 19:20 | disposition home or self-care (01) ==
LOC: C.ER 16:22
DX: S60.021A Contusion of right index finger without damage to nail, initial encounter (principal); W22.8XXA Striking against or struck by other objects, initial encounter; Y92.9 Unspecified place or not applicable

== ENCOUNTER 2018-06-08 10:20 | Emergency (ER) | payer OTHER, MEDICAID ==
[2018-06-08 10:20] VITALS: BMI 39.5
[2018-06-08 10:40] VITALS: RESP 18
--- NOTE | 2018-06-08 11:05 | C.PDOC ---
History Of Present Illness 28 y/o female presents to the ED for evaluation of right 4th finger injury, sustained last night at work. Patient states she accidentally jammed it into a heavy box. Initially she noticed swelling to the end of the finger, now complaining of persistent pain to area. Otherwise she denies any numbness, tingling, or focal weakness. Time Seen by Provider: 06/08/18 10:54 Chief Complaint (Nursing): Finger,Hand,&Wrist History Per: Patient History/Exam Limitations: no limitations Onset/Duration Of Symptoms: Days Current Symptoms Are (Timing): Still Present Past Medical History Reviewed: Historical Data, Nursing Documentation, Vital Signs Vital Signs: Last Vital Signs Temp 98.6 F 06/08/18 10:37 Pulse 64 06/08/18 10:37 Resp 18 06/08/18 10:37 BP 116/78 06/08/18 10:37 Pulse Ox 97 06/08/18 10:37 - Medical History PMH: Sexually Transmitted Disease (chlamydia) Denies: Chronic Kidney Disease - [facility] Procedures EXTRACTION OF PRODUCTS OF CONCEPTION, OTHER, VIA OPENING (10/08/17) Family History: States: Unknown Family Hx - Social History Hx Tobacco Use: No Hx Alcohol Use: No Hx Substance Use: No - Immunization History Hx Tetanus Toxoid Vaccination: No Hx Influenza Vaccination: No Hx Pneumococcal Vaccination: No Review Of Systems Except As Marked, All Systems Reviewed And Found Negative. Musculoskeletal: Positive for: Hand Pain (right 4th finger pain and swelling) Skin: Negative for: Rash, Lesions Neurological: Negative for: Weakness, Numbness Physical Exam - Physical Exam Appears: Non-toxic, No Acute Distress Skin: Warm, Dry Head: Atraumatic, Normacephalic Eye(s): bilateral: Normal Inspection Neck: Normal ROM Chest: Symmetrical Respiratory: No Accessory Muscle Use, Other (NARD) Extremity: Capillary Refill (less than 2 sec), No Deformity, Swelling (Right hand with mild swelling to the distal right 4th digit), Other (limited full ROM secondary to pain; no gross tendon dysfunction) Pulses: Left Radial: Normal, Right Radial: Normal Neurological/Psych: Oriented x3, Normal Speech, Normal Motor, Normal Sensation ED Course And Treatment O2 Sat by Pulse Oximetry: 97 (RA) Pulse Ox Interpretation: Normal - Other Rad R 4 FINGER X-Ray: Interpreted by Me (NEG) Medical Decision Making Medical Decision Making: Initial Impression: 28 y/o F with right finger injury Initial Plan: --Right hand x-ray --Tylenol 650 mg PO X-ray results discussed with patient. Finger splint applied in the ED. Patient is stable for discharge home. Disposition Counseled Patient/Family Regarding: Studies Performed, Diagnosis, Need For Followup, Rx Given - Disposition Referrals: [facility] [Outside] [facility] [Outside] Cristian Delgado MD [Staff Provider] - [facility] [Other] Disposition: HOME/ ROUTINE Disposition Time: 11:17 Condition: IMPROVED Instructions: Finger Sprain (DC) Forms: [facility] (Mongolian), Work Excuse - Clinical Impression Clinical Impression: Finger sprain - Scribe Statement The provider has reviewed the documentation as recorded by the Scribe (Suzan Cuevas) Provider Attestation: All medical record entries made by the Scribe were at my direction and personal ly dictated by me. I have reviewed the chart and agree that the record accurately reflects my personal performance of the history, physical exam, medical decision making, and the department course for this patient. I have also personally directed, reviewed, and agree with the discharge instructions and disposition. Orthopedic Care Application Of:: Finger Splint
[2018-06-08 11:27] VITALS: BP 122/83; PULSE 67; TEMP 98
[2018-06-08 11:33] VITALS: O2SAT 97
--- NOTE | 2018-06-08 14:24 | RAD ---
Date of service: 06/08/2018 PROCEDURE: Right ring finger radiographs. HISTORY: TRAUMA COMPARISON: None. TECHNIQUE: AP radiograph of the right hand, as well as spot oblique and lateral images of ring finger were obtained. FINDINGS: RIGHT RING FINGER: Normal right ring finger, without fracture or focal lesion. Remainder of the right hand (as seen on the AP view) grossly unremarkable. JOINTS: Normal. SOFT TISSUES: Normal. OTHER FINDINGS: None. IMPRESSION: Normal right ring finger radiographs. Concordant results with the preliminary interpretation rendered by the emergency department physician procedure.
== END 2018-06-08 11:29 | disposition home or self-care (01) ==
LOC: C.ER 10:20
DX: S63.614A Unspecified sprain of right ring finger, initial encounter (principal); W22.8XXA Striking against or struck by other objects, initial encounter; Y92.89 Other specified places as the place of occurrence of the external cause; Y99.0 Civilian activity done for income or pay

== ENCOUNTER 2018-11-20 21:17 | Emergency (ER) | payer MEDICAID ==
[2018-11-20 21:18] VITALS: BMI 39.5
[2018-11-20 21:31] VITALS: BP 120/80; RESP 20
[2018-11-20] MEDS ORDERED: Bacitracin 500 Units/gm Oint Foilpak UD ONE ×2 (22:14→22:18)
--- NOTE | 2018-11-20 22:18 | C.PDOC ---
History Of Present Illness 28 year old female presents after accidentally sustaining a cut to her left forearm with a knife while opening a box. Denies weakness or numbness. Time Seen by Provider: 11/20/18 21:38 Chief Complaint (Nursing): Abnormal Skin Integrity History Per: Patient History/Exam Limitations: no limitations Onset/Duration Of Symptoms: Hrs Current Symptoms Are (Timing): Still Present Location Of Injury: Left: Forearm Recent travel outside of the [place]: No Past Medical History Reviewed: Historical Data, Nursing Documentation, Vital Signs Vital Signs: Last Vital Signs Temp 97.5 F L 11/20/18 21:26 Pulse 81 11/20/18 21:26 Resp 20 11/20/18 21:26 BP 120/80 11/20/18 21:26 Pulse Ox 99 11/20/18 21:26 - Medical History PMH: Sexually Transmitted Disease (chlamydia) Denies: Chronic Kidney Disease - [facility] Procedures EXTRACTION OF PRODUCTS OF CONCEPTION, OTHER, VIA OPENING (10/08/17) Family History: States: Unknown Family Hx - Social History Hx Tobacco Use: No Hx Alcohol Use: No Hx Substance Use: No - Immunization History Hx Tetanus Toxoid Vaccination: No Hx Influenza Vaccination: No Hx Pneumococcal Vaccination: No Review Of Systems Skin: Positive for: Other (Cut) Neurological: Negative for: Weakness, Numbness Physical Exam - Physical Exam Appears: Non-toxic Skin: Warm Head: Atraumatic, Normacephalic Eye(s): bilateral: Normal Inspection Extremity: Normal ROM (x4), Capillary Refill (<2 seconds), Other (Left forearm 3cm dermis skin tear not involving other layers) Pulses: Left Radial: Normal, Right Radial: Normal Neurological/Psych: Oriented x3, Normal Speech, Normal Motor, Normal Sensation ED Course And Treatment O2 Sat by Pulse Oximetry: 99 (Room air) Pulse Ox Interpretation: Normal Progress Note: Wound was cleansed, debrided, and approximated with 3 steristrips. Patient given proper wound care instructions and advised to follow up with PMD. Laceration - Laceration Repair Left forearm Wound Length (In cm): 3 Description Of Wound: Linear Wound Cleansed With: Sterile Saline Wound Examination: Irrigated With Saline Wound Debridement/Revision: Wound Debrided Wound Closure: Steri Strips (3) Disposition Counseled Patient/Family Regarding: Diagnosis, Need For Followup, Rx Given - Disposition Referrals: Elana Pandya MD [Medical Doctor] - Disposition: HOME/ ROUTINE Disposition Time: 22:15 Condition: STABLE Additional Instructions: Please follow up with PMD Keep wound clean and dry Return to ER if worse Instructions: Laceration Repair Forms: [facility] (Czech) - Clinical Impression Clinical Impression: Laceration - injury, Laceration of forearm, left - PA / CLINICAL LIAISON / Resident Statement MD/DO has reviewed & agrees with the documentation as recorded. - Scribe Statement The provider has reviewed the documentation as recorded by the Scribrj Joseph All medical record entries made by the Santaibrj were at my direction and personally dictated by me. I have reviewed the chart and agree that the record accurately reflects my personal performance of the history, physical exam, medical decision making, and the department course for this patient. I have also personally directed, reviewed, and agree with the discharge instructions and disposition.
[2018-11-20 22:24] VITALS: PULSE 82; TEMP 98
[2018-11-21 02:36] VITALS: O2SAT 99
== END 2018-11-20 22:24 | disposition home or self-care (01) ==
LOC: C.ER 21:17
DX: S51.812A Laceration without foreign body of left forearm, initial encounter (principal); W26.0XXA Contact with knife, initial encounter